=== PATIENT | female | born 1970 | race Caucasian/White ===

== ENCOUNTER 2024-11-10 02:09 | Inpatient (IN) | payer BC, SELFPAY ==
[2024-11-09 17:17] VITALS: BP 122/76
[2024-11-09 17:52] LABS: % Basophils 0.3 % (0-2); % Immature Granulocytes 0.4 % (0-0.5); % Lymphocytes 6.2 % (20.5-51.1); % Monocytes 6.1 % (1.7-9.3); Absolute Basophils 0.1 10^3/uL (0-0.2); Absolute Immature Granulocytes 0.1 10^3/uL (0-0.05); Absolute Lymphocytes 1.3 10^3/uL (1.2-3.4); Absolute Monocytes 1.2 10^3/uL (0.1-0.6); Absolute Neutrophils 17.5 10^3/uL (1.4-6.5); Hematocrit 37.4 % (37.0-47.0); Mean Corp Hgb Conc. 34.8 g/dL (33.0-37.0); Mean Corpuscular Hgb 29.9 pg (27.0-31.0); Mean Platelet Volume 11.3 fL (7.4-10.4); Nucleated Red Blood Cells % 0 %; Platelet Count 194 10^3/uL (130-400); Red Blood Cell Count 4.35 10^6/uL (4.20-5.40); Red Cell Dist. Width 12.8 % (11.5-14.5); White Blood Cell Count 20.1 10^3/uL (4.8-10.8)
[2024-11-09 18:07] LABS: ALT (SGPT) 24 U/L (0-35); AST (SGOT) 19 U/L (14-36); Albumin 4.2 g/dl (3.5-5.0); Alkaline Phosphatase 71 U/L (38-126); Blood Urea Nitrogen 10 mg/dl (7-17); Calcium 9.5 mg/dl (8.4-10.2); Carbon Dioxide 23 mmol/L (22-30); Chloride 100 mmol/L (98-107); Glucose 110 mg/dl (70-99); Lipase 51 U/L (23-300); Potassium 3.8 mmol/L (3.5-5.1); Sodium 134 mmol/L (135-145); Total Bilirubin 1.5 mg/dl (0.2-1.3); Total Protein 6.9 g/dl (6.3-8.2); eGFR > 60.00
[2024-11-09 23:11] VITALS: BMI 33.1
--- NOTE | 2024-11-09 23:16 | ED.GENMED ---
History of Present Illness
General
Chief Complaint: Abdominal Pain
Time Seen by Provider: 11/09/24 22:27
History of Present Illness
History of Present Illness:
54-year-old female with history of hyperlipidemia presenting to the emergency department with abdominal pain. Patient reports since yesterday morning she has been having left lower quadrant abdominal pain. Does note some nausea and vomiting.
Denies changes in her stool. Reports history of hysterectomy, otherwise denies abdominal surgeries. Denies chest pain or difficulty breathing. Denies any history of diverticulitis, does report diverticulosis in the past. Reports low-grade
fevers. She had a telehealth visit with her primary care doctor today, was prescribed ofloxacin and metronidazole. She denies additional acute medical complaints
Past History
Past History
ED Past Medical History: Psychiatric
Phy Exam
Physical Exam
Physical Exam:
General: Well-appearing, no clinical signs of dehydration, nontoxic and in no acute distress
HEENT: protecting airway
Neck: appears supple
CV: Normal heart rate, regular rhythm, no evidence of cyanosis
Resp: No accessory muscle use, no increased work of breathing
Abd: Soft and non-distended, focal tenderness to the left lower quadrant with voluntary guarding, no rebound
Extremities: No deformities, no swelling, no erythema
Neuro: alert, no focal neurologic deficit
: deferred
Rectal: deferred
Psych: Normal affect
Skin: Intact
Course
Orders/Labs/Results
Orders:
Orders
11/09/24 17:39
Complete Blood Count/With Diff Urgent
Comprehensive Metabolic Panel Urgent
Lipase Urgent
11/09/24 19:46
CT Abd/Pel (IV only)-DH only Urgent
Comment:
Reason For Exam: llq
11/09/24 22:27
Lactic Acid Urgent
0.9% Sodium Chloride 1000 ml [Nss] 1,000 ml IV BOLUS
11/09/24 22:55
Cefepime HCl [Maxipime] 2,000 mg IV NOW STA
Ketorolac [Toradol] 30 mg IV NOW STA
Vancomycin [Vancocin] 2,000 mg 0.9% Sodium Chloride 500 ml [Nss] 500 ml IV NOW
Abnormal Lab Results
11/09/24
17:39
WBC 20.1 H 10^3/uL
(4.8-10.8)
MPV 11.3 H fL
(7.4-10.4)
Abs Immat Gran (auto) 0.1 H 10^3/uL
(0-0.05)
Absolute Neuts (auto) 17.5 H 10^3/uL
(1.4-6.5)
Absolute Monos (auto) 1.2 H 10^3/uL
(0.1-0.6)
Neutrophils % 87.0 H %
(42.2-75.2)
Lymphocytes % 6.2 L %
(20.5-51.1)
Sodium 134 L mmol/L
(135-145)
Glucose 110 H mg/dl
(70-99)
Total Bilirubin 1.5 H mg/dl
(0.2-1.3)
11/09/24 17:39
11/09/24 17:39
Vital Signs
Initial and Last Documented VS:
Initial Vital Signs
Temp Pulse Resp BP Pulse Ox
99.2 F 87 18 122/76 97
11/09/24 17:17 11/09/24 17:17 11/09/24 17:17 11/09/24 17:17 11/09/24 17:17
Last Documented Vital Signs
Temp Pulse Resp BP Pulse Ox
99.2 F 87 18 122/76 97
11/09/24 17:17 11/09/24 17:17 11/09/24 17:17 11/09/24 17:17 11/09/24 17:17
MDM/Problems Addressed
MDM/Problems Addressed:
54-year-old female with history of hyperlipidemia presenting to the emergency department with left lower quadrant abdominal pain. Vital signs on arrival severe for low-grade temperature
On exam, patient is resting comfortably, nontoxic, however does appear uncomfortable secondary to pain. Patient with focal tenderness to the left lower quadrant. Primary suspicion for acute diverticulitis. Patient had laboratory analysis and CT
imaging obtained prior to my assessment. Patient does have leukocytosis. Blood pressure is stable, no additional SIRS criteria. Will add lactic acid. Patient did also have CT imaging, consistent with acute diverticulitis of the sigmoid colon
with contained perforation. Will start patient on IV antibiotics. Plan for admission for continued antibiotic therapy and surgical consultation. Toradol administered for pain. IV fluids administered
*Critical Care Note
Total Time (30-74mins, 75-104mins- exclusive of procedures): Not Applicable
ED Attending Note
-
Portions of this chart may have been created with voice recognition software.� Occasional wrong word or��sound alike� substitutions may have occurred due to the inherent limitations of voice recognition software.
Discharge Plan
Departure
Prescriptions:
No Action
trazodone 50 mg Tablet
50 mg PO HS
metronidazole 500 mg Tablet
500 mg PO BID
ciprofloxacin HCl [Cipro] 500 mg Tablet
500 mg PO BID
buspirone 10 mg Tablet
10 mg PO TID
ibuprofen [Advil] 200 mg Tablet
600 mg PO Q6HPRN PRN (Reason: mild pain)
escitalopram oxalate 20 mg Tablet
20 mg PO HS
rosuvastatin 10 mg Tablet
10 mg PO HS
Interventions
Interventions:
*Risk Screen - Suicide Last Done: 11/09/24 17:17
*General Assessment Last Done: 11/09/24 17:17
*Neglect/Abuse Screening Last Done: 11/09/24 17:17
ED- Fall Risk Assessment Last Done: 11/09/24 23:11
*ED COVID-19 Vaccine History Last Done: 11/09/24 23:11
GM-Hdhwki-Ftsefysfmu Assessment Last Done: 11/09/24 23:11
Discharge Date and Time
Print Language: TELUGU
[2024-11-09] MEDS: MAXIPIME 2000 MG IV (23:26)
[2024-11-09] MEDS: TORADOL 30 MG IV (23:26)
[2024-11-09] MEDS: NSS 1000 IV (23:27)
[2024-11-09 23:35] VITALS: BP 119/55
[2024-11-09 23:53] LABS: Lactic Acid 0.8 mmol/L (0.7-2.0)
[2024-11-10] VITALS (10 sets, daily range): BP systolic 109–132; BP diastolic 57–82; BMI 33.1
[2024-11-10] MEDS: VANCOCIN 540 MG IV (00:25)
--- NOTE | 2024-11-10 01:40 | HPS.HSE ---
Family Physician
-
Family Physician: Angela Morelos
Chief Complaint
-
Abdominal pain
History of Present Illness
Abdominal pain
This is a 54-year-old with past medical history significant for anxiety/depression, hyperlipidemia presenting to the emergency department with approximately 1 day history of abdominal pain.
Patient reports sudden onset of bilateral lower quadrant abdominal pain that started around 1 AM 24 hours ago. She had this pain woke her from sleep. She cannot have abdominal pain and vomiting. She did not have diarrhea. She denied fevers or
chills.
She reported symptoms slightly improved in the morning but then got worse again during the daytime. She called and received instructions on medication from her physician. She was supposed to start on Cipro and Flagyl. She did stat 1 dose of these
medications. She was placed on clear liquid diet at home. And symptoms worsened so she was referred to the emergency department.
In the emergency department she was afebrile, blood pressure was 112/60 with a pulse of 87 and satting 94% on room air. He had leukocytosis to 20, hemoglobin and platelets were normal. Electrolytes BUN/creatinine were also normal. CT of the
abdomen and pelvis showed Findings suspicious for distal sigmoid diverticulitis with possible accompanying small contained perforation but without free air. Some adjacent small volume free fluid in the dependent true pelvis
Medical History
Past Medical History
Past Medical History: Reports Hypercholesterolemia and Psychiatric
Past Surgical History: Reports Gynocological (hysterectomy)
Social History
Tobacco: Former Smoker
Alcohol: Daily (3 beers / day)
Drug: None
Personal:
Living: With Family
Employment: Employed
Family History
Family History: Not pertinent
Allergies / Home Medications
Allergies reflects when Allergies were last updated in [facility].
Home Medications with original date entered in [facility]
Allergy/Medication List:
Allergies
Allergy/AdvReac Type Severity Reaction Status Date / Time
Penicillins Allergy Rash Verified 11/09/24 17:22
venom-honey bee Allergy Anaphylaxis Verified 11/09/24 17:22
[bee venom (honey bee)]
Home Medications
buspirone 10 mg tablet 10 mg PO TID 11/09/24
ciprofloxacin HCl 500 mg tablet (Cipro) 500 mg PO BID 11/09/24
escitalopram oxalate 20 mg tablet 20 mg PO HS 11/09/24
ibuprofen 200 mg tablet (Advil) 600 mg PO Q6HPRN PRN mild pain 11/09/24
metronidazole 500 mg tablet 500 mg PO BID 11/09/24
rosuvastatin 10 mg tablet 10 mg PO HS 11/09/24
trazodone 50 mg tablet 50 mg PO HS 11/09/24
Review of Systems
-
History Source: Patient
Constitutional: Reports No Symptoms
EENT: Reports No Symptoms
Respiratory: Reports No Symptoms
Cardiac: Reports No Symptoms
Abdomen/GI: Reports Abdominal Pain
: Reports No Symptoms
Musculoskeletal: Reports No Symptoms
Skin: Reports No Symptoms
Neurological: Reports No Symptoms
Endocrine: Reports No Symptoms
Hematologic/Lymphatic: Reports No Symptoms
Psych: Reports No Symptoms
Physical Exam
Vital Signs
Vital Signs
Temp Pulse Resp BP Pulse Ox
98.9 F 87 18 112/60 94
11/09/24 23:11 11/09/24 17:17 11/09/24 17:17 11/10/24 01:00 11/10/24 01:00
Physical Exam
General: Well Developed and Well Nourished; No Fever or Chills
HEENT: NormoCephalic, Anicteric, Moist mucous membranes and Atraumatic
Respiratory: Clear; No Wheezes, Rales or Rhonchi
Cardiac: S1/S2 and Regular Rhythm
Breast: Deferred by me
GI: Soft, Non Distended, Normal Bowel Sounds and Tender
Rectal: Deferred by Provider
Genito-urinary: Deferred by me
Musculoskeletal: No Clubbing, No Cyanosis and No Edema
Skin: Warm and Dry
Neuro: AO x 3 and Nonfocal/grossly intact
Hematologic/Lymphatic: No Lymphadenopathy
Psych: Calm
Laboratory Results
-
11/09/24 17:39
11/09/24 17:39
Laboratory Results
Lactic Acid 0.8 mmol/L (0.7-2.0) 11/09/24 23:25
Total Bilirubin 1.5 mg/dl (0.2-1.3) H 11/09/24 17:39
AST 19 U/L (14-36) 11/09/24 17:39
ALT 24 U/L (0-35) 11/09/24 17:39
Alkaline Phosphatase 71 U/L (38-126) 11/09/24 17:39
Lipase 51 U/L (23-300) 11/09/24 17:39
Data Reviewed
-
CT Scan: Report Reviewed by me
Lab Data: Labs Reviewed by me
Old Records: Reviewed
Impression/Plan
-
IMPRESSION:
54 y.o female coming in with abdominal pain nausea and vomiting. Initated on abx for diverticulitis by PMD prior to ED arrival today. Found to have distal sigmoid diveriticulitis with possible accompanying small contained perforation but without
free air, small amount of free pelvic fluid.
PLAN:
Diverticulitis - She is currently HD stable, afebrile and well appearing. Abdominal exam is relatively benign without rebound or guarding. CT with diverticulitis and possible contained perforation. NO recent hospitalizations or abx use.
- admit to med/surg
- npo for now
- IV cefepime continued, IV flagyl. No indication for vanc
- serial examinations
- surgery consultation s
- blood cultures if febrile.
- continue oral statin, lexapro and buspirone
DVT PPPX - lovenox sq
Code status - Full Code
[2024-11-10] MEDS: FLAGYL 500 MG 100 IV ×3 (02:37→23:19)
[2024-11-10] MEDS: BENADRYL 25 MG IV (02:51)
[2024-11-10] MEDS: DECADRON 6 MG IV (02:52)
[2024-11-10] MEDS: LR 1000 IV ×2 (04:30→11:37)
[2024-11-10] MEDS: TORADOL 10 MG IV (04:47)
[2024-11-10] MEDS: PEPCID 40 MG PO (05:15)
[2024-11-10] MEDS: STERILE WATER FOR INJECTION 10 ML IV ×3 (05:15→20:11)
[2024-11-10] MEDS: MAXIPIME 1000 MG IV ×3 (05:15→20:12)
--- NOTE | 2024-11-10 06:11 | PTCARENOTE ---
Pt arrived to floor from ED and walked to bed from stretcher with a standby assist. Pt c/o left knee pain from a fall a week ago. PT With some Mild LLQ distention and tender to touch. VSS, call patterson within reach. Will review chart and follow plan of
care.
--- NOTE | 2024-11-10 07:05 | W.PN.HOSP.TC ---
Today's Communication/Plan
-
Continue antibiotics
Clear liquids diet -- advance as tolerated
AVOID ANY VANCOMYCIN OR PENICILLIN (SEE BELOW)
Assessment / Plan
Assessment / Plan
Physical Exam
General: Well Developed and Well Nourished; Not in acute distress
HEENT: Normocephalic
Respiratory: Clear to Auscultation Bilaterally
Cardiac: S1/S2 and Regular Rhythm
GI: Soft, Non Distended, Normal Bowel Sounds and Mild LLQ tenderness
Musculoskeletal: No Cyanosis and No Edema
Skin: Warm and Dry
Neuro: AAO x 3 and Nonfocal/grossly intact
Psych: Calm
Assessment/Plan
54 y/o female presented with abdominal pain nausea and vomiting. She was started on antibiotics for diverticulitis by primary care physician prior to arrival to the ER this admission. She was found to have distal sigmoid diveriticulitis with
possible accompanying small contained perforation but without free air, small amount of free pelvic fluid.
Diverticulitis
- CT with inflammatory changes of the distal sigmoid colon consistent with diverticulitis; there is a small amount of pericolonic air but no free air, obstruction or abscess.
- Clear Liquids Diet -- advance as tolerated
- IV cefepime continued, IV flagyl. No indication for vanc
- Colorectal surgery consultation s
Allergies to Vancomycin and Penicillins
Vancomycin Rachell Syndrome Reaction
- Got rash around the time of admission, was determined to be likely from Vancomycin
- Appears to be tolerating cephalosporin fine
Alcohol Use -- has 4 drinks daily
-Continue MSAS protocol
Indigestion Symptoms
-Pepcid added overnight
DVT Prophylaxis - Lovenox sq
Code status - Full Code
Anticipated Discharge: Within 24 hours
Subjective/Interval History
-
Date of Service: November 10, 2024
Patient was seen and examined. She reported that her abdominal pain has improved.
Objective Data
-
Labs:
Laboratory Results
11/10/24
06:00
WBC Pending
Hgb Pending
Hct Pending
Plt Count Pending
Sodium Pending
Potassium Pending
Chloride Pending
Carbon Dioxide Pending
BUN Pending
Creatinine Pending
Glucose Pending
Calcium Pending
Vital Signs:
Vital Signs
Temp Pulse Resp BP Pulse Ox
97.4 F 88 17 130/72 97
11/10/24 03:44 11/10/24 03:44 11/10/24 03:44 11/10/24 03:44 11/10/24 03:44
I&O
11/09/24 11/10/24 11/11/24
06:59 06:59 06:59
Intake Total 495 / 495
Balance 495 / 495
[2024-11-10] MEDS: TYLENOL 650 MG PO ×3 (08:01→20:08)
[2024-11-10] MEDS: BUSPAR 10 MG PO ×3 (08:01→20:10)
[2024-11-10 09:03] LABS: Hematocrit 34.9 % (37.0-47.0); Hemoglobin 11.9 g/dL (12.0-16.0); Mean Corp Hgb Conc. 34.1 g/dL (33.0-37.0); Mean Corpuscular Hgb 29.8 pg (27.0-31.0); Mean Corpuscular Volume 87.5 fL (81.0-99.0); Mean Platelet Volume 11.9 fL (7.4-10.4); Platelet Count 173 10^3/uL (130-400); Red Blood Cell Count 3.99 10^6/uL (4.20-5.40); Red Cell Dist. Width 12.8 % (11.5-14.5); White Blood Cell Count 17.3 10^3/uL (4.8-10.8)
[2024-11-10 09:33] LABS: Blood Urea Nitrogen 10 mg/dl (7-17); Calcium 9.2 mg/dl (8.4-10.2); Carbon Dioxide 20 mmol/L (22-30); Chloride 105 mmol/L (98-107); Estimated Creatinine Clearance 122 ml/min; Glucose 144 mg/dl (70-99); Magnesium 2.1 mg/dl (1.6-2.3); Potassium 3.8 mmol/L (3.5-5.1); Sodium 136 mmol/L (135-145); eGFR > 60.00
[2024-11-10] MEDS: MAXIPIME IV (11:38)
--- NOTE | 2024-11-10 13:04 | CON.CRS ---
Medical History
-
Chief Complaint: abdominal pain
History of Present Illness:
This is a 54 yo female with a prior history of ASHWIN, HLD and colonoscopy in 2022 with removal of small polyps and diverticular disease noted who presents with lower abdominal pain for approximately 24 hours which is currently nearly resolved. She
denies accompanied nausea, vomiting or diarrhea. She denies fevers and chills. On exam, minimal to no tenderness present to the lower abdomen without distention present.
Past Medical History
Past Medical History: Hypercholesterolemia
Past Surgical History: Gynecological (ASHWIN)
Social History
Tobacco: Former Smoker
Alcohol: Daily
Drug: None
Personal:
Living: With Family
Employment: Employed
Family History
Family History: Reviewed & Not Pertinent
Allergies / Home Medications
Allergy/AdvReac Type Severity Reaction Status Date / Time
Penicillins Allergy Rash Verified 11/09/24 17:22
venom-honey bee Allergy Anaphylaxis Verified 11/09/24 17:22
[bee venom (honey bee)]
�Medication �Instructions �Recorded �Confirmed �Type
buspirone 10 mg tablet 10 mg PO TID 11/09/24 11/09/24 History
ciprofloxacin HCl 500 mg tablet 500 mg PO BID 11/09/24 11/09/24 History
(Cipro)
escitalopram oxalate 20 mg tablet 20 mg PO HS 11/09/24 11/09/24 History
ibuprofen 200 mg tablet (Advil) 600 mg PO Q6HPRN PRN mild pain 11/09/24 11/09/24 History
metronidazole 500 mg tablet 500 mg PO BID 11/09/24 11/09/24 History
rosuvastatin 10 mg tablet 10 mg PO HS 11/09/24 11/09/24 History
trazodone 50 mg tablet 50 mg PO HS 11/09/24 11/09/24 History
ranitidine HCl 150 mg tablet 150 mg PRN heartburn 11/10/24 History
Review of Systems
-
History Source: Patient and Family
All other systems: Negative unless noted
A 10 point review of systems was completed, and was negative except as per HPI.
Physical Exam
Vital Signs
Temp 99.2 F 11/10/24 07:49
Pulse 84 11/10/24 07:49
Resp Rate 16 11/10/24 07:49
Blood pressure 111/66 11/10/24 07:49
SaO2 98 11/10/24 07:49
11/09/24 11/10/24 11/11/24
06:59 06:59 06:59
Actual Weight 90.322 kg
Body Mass Index (BMI) 33.1
Lab Results / Allergies
11/10/24 08:25
11/10/24 08:25
WBC 17.3 10^3/uL (4.8-10.8) H 11/10/24 08:25
Hgb 11.9 g/dL (12.0-16.0) L 11/10/24 08:25
Hct 34.9 % (37.0-47.0) L 11/10/24 08:25
Plt Count 173 10^3/uL (130-400) 11/10/24 08:25
Abs Immat Gran (auto) 0.1 10^3/uL (0-0.05) H 11/09/24 17:39
Neutrophils % 87.0 % (42.2-75.2) H 11/09/24 17:39
Allergy/AdvReac Type Severity Reaction Status Date / Time
Penicillins Allergy Rash Verified 11/09/24 17:22
venom-honey bee Allergy Anaphylaxis Verified 11/09/24 17:22
[bee venom (honey bee)]
Physical Exam
General: Well Developed and Well Nourished
HEENT: Moist Mucous Membranes
Respiratory: Non Labored Respirations
GI: Soft, Non Tender and Non Distended
Skin: Warm and Dry
Neuro: Awake and AO x 3
Psych: Calm
Data Reviewed
-
CT Scan: Image Personally Visualized and interpreted, Report Reviewed by me, Discussed with Physician and Discussed with Patient
Labs: Labs Reviewed by me, Discussed with Physician and Discussed with Patient
Old Records: Reviewed
Assessment / Plan
-
54 yo female with a prior history of ASHWIN, HLD and colonoscopy in 2022 with removal of small polyps and diverticular disease noted who presents with lower abdominal pain for approximately 24 hours which is currently nearly resolved. Significant
leukocytosis was present on arrival but now trending down with CT imaging demonstrating findings of sigmoid diverticulitis with possible contained microperforation although no abscess or free air is present. She has responded well to IV abx with
significant improvement in symptoms. AFVSS.
--Ok for clear liquids and advance to FLD later today if tolerating without increase in pain
--Trend CBC
--Continue IV ABX
--Medical management as per primary team
No plans for emergent surgery at this time, will follow for continued improvement medical measures
[2024-11-10] MEDS: MYLICON 80 MG PO (20:07)
[2024-11-10] MEDS: DESYREL 50 MG PO (20:09)
[2024-11-10] MEDS: LEXAPRO 20 MG PO (20:10)
[2024-11-10] MEDS: CRESTOR 10 MG PO (20:10)
[2024-11-10] MEDS: PEPCID 20 MG PO (20:10)
[2024-11-11] MEDS: MAXIPIME 1000 MG IV ×2 (01:07→08:14)
[2024-11-11] MEDS: LR 1000 IV ×2 (01:07→08:13)
[2024-11-11] MEDS: STERILE WATER FOR INJECTION 10 ML IV ×2 (01:08→08:14)
--- NOTE | 2024-11-11 07:14 | W.PN.HOSP.TC ---
Addendum entered and electronically signed by Souleymane Braun MD 11/11/24 14:40:
Per my [place] [facility] communication today with colorectal surgery team, they prefer cephalosporin and metronidazole (not Bactrim or Fluoroquinolone) on discharge, and patient is allergic to penicillins so cannot do Augmentin.
Original Note:
Today's Communication/Plan
-
Discharge today
Assessment / Plan
Assessment / Plan
Physical Exam
General: Well Developed and Well Nourished; Not in acute distress
HEENT: Normocephalic
Respiratory: Clear to Auscultation Bilaterally
Cardiac: S1/S2 and Regular Rhythm
GI: Soft, Non Distended, Normal Bowel Sounds and Mild LLQ tenderness
Musculoskeletal: No Cyanosis and No Edema
Skin: Warm and Dry
Neuro: AAO x 3 and Nonfocal/grossly intact
Psych: Calm
Assessment/Plan
54 y/o female presented with abdominal pain nausea and vomiting. She was started on antibiotics for diverticulitis by primary care physician prior to arrival to the ER this admission. She was found to have distal sigmoid diveriticulitis with
possible accompanying small contained perforation but without free air, small amount of free pelvic fluid.
Diverticulitis
- CT with inflammatory changes of the distal sigmoid colon consistent with diverticulitis; there is a small amount of pericolonic air but no free air, obstruction or abscess.
- Low Residue Diet
- Cefdinir and Flagyl on discharge for 10 more days
- Colorectal surgery consulted
Allergies to Vancomycin and Penicillins
Vancomycin Rachell Syndrome Reaction
- Got rash around the time of admission, was determined to be likely from Vancomycin
- Appears to be tolerating cephalosporin fine
Alcohol Use -- has 4 drinks daily
-Continue MSAS protocol
-MSAS scores have been zero to 1 over the past >24 hours
Indigestion Symptoms
-Pepcid added this hospitalization, can do as needed outpatient
DVT Prophylaxis - Lovenox sq
Code status - Full Code
More than 30 minutes spent in discharge including
Final examination of the patient
Summarizing hospital stay
Instructions for continuing care to all relevant caregivers
Preparation of discharge records, prescriptions, and referral forms
Total time spent (in minutes): 39
Anticipated Discharge: Today
Subjective/Interval History
-
Date of Service: November 11, 2024
Patient was seen and examined. She denied any complaints or issues at the time she was seen, she had a bowel movement, and is also tolerating her diet.
Objective Data
-
Labs:
Laboratory Results
11/11/24
07:01
WBC Pending
Hgb Pending
Hct Pending
Plt Count Pending
Sodium Pending
Potassium Pending
Chloride Pending
Carbon Dioxide Pending
BUN Pending
Creatinine Pending
Glucose Pending
Calcium Pending
Vital Signs:
Vital Signs
Temp Pulse Resp BP Pulse Ox
97.9 F 76 17 109/66 100
11/10/24 23:37 11/10/24 23:37 11/10/24 23:37 11/10/24 23:37 11/10/24 23:37
I&O
11/10/24 11/11/24 11/12/24
06:59 06:59 06:59
Intake Total 495 / 495 2675 / 2675
Balance 495 / 495 2675 / 2675
[2024-11-11 07:25] VITALS: BP 121/72
[2024-11-11 08:06] LABS: Hematocrit 33.1 % (37.0-47.0); Hemoglobin 11.5 g/dL (12.0-16.0); Mean Corp Hgb Conc. 34.7 g/dL (33.0-37.0); Mean Corpuscular Hgb 30.2 pg (27.0-31.0); Mean Corpuscular Volume 86.9 fL (81.0-99.0); Mean Platelet Volume 11.8 fL (7.4-10.4); Platelet Count 170 10^3/uL (130-400); Red Blood Cell Count 3.81 10^6/uL (4.20-5.40); White Blood Cell Count 14.3 10^3/uL (4.8-10.8)
[2024-11-11] MEDS: PEPCID 20 MG PO (08:13)
[2024-11-11] MEDS: BUSPAR 10 MG PO ×2 (08:13→15:52)
[2024-11-11] MEDS: TORADOL 10 MG IV (08:14)
[2024-11-11 08:38] LABS: Blood Urea Nitrogen 6 mg/dl (7-17); Calcium 9.3 mg/dl (8.4-10.2); Carbon Dioxide 24 mmol/L (22-30); Chloride 107 mmol/L (98-107); Estimated Creatinine Clearance 122 ml/min; Glucose 131 mg/dl (70-99); Potassium 3.9 mmol/L (3.5-5.1); Sodium 140 mmol/L (135-145); eGFR > 60.00
--- NOTE | 2024-11-11 09:57 | W.PN.GS2 ---
Today's Communication / Plan
-
advance diet
Assessment / Plan
-
54 yo female presenting with first episode of diverticulitis, up to date on colonoscopy. CT reveals inflammatory changes of the distal sigmoid colon c/w diverticulitis. There is a small amount of pericolonic air but no free air, obstruction or
abscess
AFVSS
WBC trending down
--Advance to LRD
--C/W antibiotics
--May be ready for discharge later today on oral agents if tolerating diet, patient eager to go home. Will plan OP follow up
Subjective Data
-
Date of Service: November 11, 2024
Patient seen and examined at bedside with Dr. Quintero. She has some mild cramping discomfort to the left lower abd with some diarrhea today. Tolerating diet.
Objective Data
-
Intake and Output
11/10/24 11/11/24 11/12/24
06:59 06:59 06:59
Intake Total 495 / 495 2675 / 2675
Balance 495 / 495 2675 / 2675
Intake:
Oral fluids 120 / 120 1200 / 1200
IV fluids (Total) 375 / 375 1375 / 1375
IV piggybacks 100 / 100
Other:
Number of approximated MODERATE 4
amounts of urine
How many times incontinent 1
MODERATE amount urine
Vital Signs
Temp Pulse Resp BP Pulse Ox
98.5 F 82 18 121/72 99
11/11/24 07:25 11/11/24 07:25 11/11/24 07:25 11/11/24 07:25 11/11/24 07:25
Lab Results
11/11/24 07:01
11/11/24 07:01
Calcium 9.3 mg/dl (8.4-10.2) 11/11/24 07:01
Magnesium 2.1 mg/dl (1.6-2.3) 11/10/24 08:25
Total Bilirubin 1.5 mg/dl (0.2-1.3) H 11/09/24 17:39
AST 19 U/L (14-36) 11/09/24 17:39
ALT 24 U/L (0-35) 11/09/24 17:39
Alkaline Phosphatase 71 U/L (38-126) 11/09/24 17:39
Total Protein 6.9 g/dl (6.3-8.2) 11/09/24 17:39
Albumin 4.2 g/dl (3.5-5.0) 11/09/24 17:39
Physical Exam
-
NAD
ABD soft, minimal tenderness to LLQ, nd
[2024-11-11 11:11] VITALS: BP 130/84
[2024-11-11] MEDS: FLAGYL 500 MG IV ×2 (11:31→11:49)
[2024-11-11] MEDS: MAXIPIME IV (12:51)
[2024-11-11] MEDS: STERILE WATER FOR INJECTION IV (12:51)
--- NOTE | 2024-11-11 14:36 | W.DCSUMMARY ---
Discharge Summary
Discharge Data
Date of Admission: 11/10/24
Date of Discharge: 11/11/24
Total time spent discharging patient (in min): 39
-
Pending Results: No
Hospital Course
54-year-old female with past medical history significant for anxiety/depression, hyperlipidemia presenting to the emergency department with approximately 1 day history of abdominal pain. CT of the abdomen pelvis suggested distal sigmoid
diverticulitis with possible accompanying small contained perforation but without free air (but please see full CT imaging report for all of the details). 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
have a Rachell Syndrome with Vancomycin (which was given in the ER) -- rash resolved with discontinuation and supportive (e.g. Benadryl) medications. Patient tolerated Cefepime and Flagyl well. Colorectal surgery was consulted at the time of
admission and they mentioned that there is a small amount of pericolonic air but no free air, obstruction or abscess, and they mentioned no surgery was required. Patient's symptoms improved and she was stable for discharge on oral antibiotics.
Surgery team recommended oral cephalosporin and flagyl on discharge (given patient tolerated Cephalosporin inpatient), so patient was discharged on Cefdinir and Flagyl.
Discharge Plan
-
Patient Disposition: Home (Routine Discharge)
Discharge Diagnosis/Procedures: Diverticulitis
Allergies to Vancomycin and Penicillins
Vancomycin Rachell Syndrome Reaction
Alcohol Use -- has 4 drinks daily
Indigestion Symptoms
CT Abdomen/Pelvis (as per radiologist's report):
'Findings suspicious for distal sigmoid diverticulitis with possible accompanying small contained perforation but without free air. Some adjacent small volume free fluid in the dependent true pelvis.'
Condition: Good
Diet: Low Fiber and Low Residue
Additional Diets: low fiber for about 2-3 weeks
Activity: As tolerated
Blood Work: Check CBC (with differential) and CMP (due to slightly elevated bilirubin) with your outpatient physician within 1 week
Instructions: Low-fiber diet
Referrals:
Wes Quintero MD [Active] - in two to four weeks
Angela Morelos DO [Family Provider] - in less than 1 week (CBC with differential, CMP labwork)
Additional Discharge Medication Instructions: Cefdinir and new Metronidazole are new medications.
Ciprofloxacin and your previous Metronidazole have been stopped.
Prescriptions:
New
cefdinir 300 mg capsule
300 mg PO Q12H 10 Days Qty: 20 0RF
metronidazole 500 mg tablet
500 mg PO Q8H 10 Days Qty: 30 0RF
Continued
trazodone 50 mg Tablet
50 mg PO HS
buspirone 10 mg Tablet
10 mg PO TID
ibuprofen [Advil] 200 mg Tablet
600 mg PO Q6HPRN PRN (Reason: mild pain)
escitalopram oxalate 20 mg Tablet
20 mg PO HS
rosuvastatin 10 mg Tablet
10 mg PO HS
ranitidine HCl 150 mg Tablet
150 mg PRN (Reason: heartburn)
Discontinued
metronidazole 500 mg Tablet
500 mg PO BID
ciprofloxacin HCl [Cipro] 500 mg Tablet
500 mg PO BID
Discharge Orders:
Discharge Patient (As Directed); Ordered 11/11/24
Ordered By: Souleymane Braun
Discharge Date and Time
Discharge Date/Time: 11/11/24 16:25
Print Language: MALDIVIAN
[2024-11-11 15:00] VITALS: BP 109/71
[2024-11-11] MEDS: OMNICEF 300 MG PO (15:02)
--- NOTE | 2024-11-11 15:36 | CM ---
Addendum entered by Judi Manley RN 11/11/24 15:41:
The patient says she feels ready for d/c today. Her will provide transport home today.
Original Note:
Patient with Dx Diverticulitis.
Met with patient who resides with her and mother in law in a split level house with chair lift.
The patient was independent in ADLs and ambulation.
DME - [employer], [employer], home O2 (not using any DME)
No prior VN
PCP - Angela Duarte
Pharmacy - [facility]
No CM d/c needs identified.
Plan home.
[2024-11-11] MEDS: FLAGYL 500 MG PO (15:52)
== END 2024-11-11 16:25 | disposition home or self-care (01) | DRG 392 ==
LOC: 3 WEST ACU 02:09
PROVIDERS: Emergency Medicine; Registered Nurse; ADMITTING PHYSICIAN Internal Medicine; ATTENDING PHYSICIAN Hospitalist; CONSULT PHYSICIAN Surgery; EMERGENCY PHYSICIAN Student in an Organized Health Care Education/Training Program; FAMILY PHYSICIAN Family Medicine
DX: K57.32 Diverticulitis of large intestine without perforation or abscess without bleeding (principal); Z87.891 Personal history of nicotine dependence; Z88.1 Allergy status to other antibiotic agents; F10.90 Alcohol use, unspecified, uncomplicated; K30 Functional dyspepsia; Z88.0 Allergy status to penicillin; L27.0 Generalized skin eruption due to drugs and medicaments taken internally; T36.8X5A Adverse effect of other systemic antibiotics, initial encounter
CPT/HCPCS: 74177; 80048; 80053; 83605; 83690; 83735; 85025; 85027; 93005; 96361; 96365; 96366; 96367; 96375; 99284; Q9967

== ENCOUNTER 2025-02-08 10:04 | Inpatient (IN) | payer BC, SELFPAY ==
[2025-02-01 06:58] VITALS: BMI 33.8
[2025-02-01 09:02] LABS: Hematocrit 41.1 % (37.0-47.0); Hemoglobin 13.9 g/dL (12.0-16.0); Mean Corp Hgb Conc. 33.8 g/dL (33.0-37.0); Mean Corpuscular Hgb 29.7 pg (27.0-31.0); Mean Corpuscular Volume 87.8 fL (81.0-99.0); Mean Platelet Volume 12.6 fL (7.4-10.4); Platelet Count 190 10^3/uL (130-400); Red Blood Cell Count 4.68 10^6/uL (4.20-5.40); Red Cell Dist. Width 13.2 % (11.5-14.5); White Blood Cell Count 7.5 10^3/uL (4.8-10.8)
[2025-02-01 09:22] LABS: INR 0.88; PT 12.2 Sec (11.4-14.6)
[2025-02-01 09:23] LABS: APTT 32.1 Sec (23.4-35.0)
[2025-02-01 09:43] LABS: ALT (SGPT) 25 U/L (0-35); AST (SGOT) 22 U/L (14-36); Albumin 4.8 g/dl (3.5-5.0); Alkaline Phosphatase 53 U/L (38-126); Blood Urea Nitrogen 16 mg/dl (7-17); Calcium 9.7 mg/dl (8.4-10.2); Carbon Dioxide 28 mmol/L (22-30); Chloride 109 mmol/L (98-107); Estimated Creatinine Clearance 89 ml/min; Glucose 95 mg/dl (70-99); Potassium 4.7 mmol/L (3.5-5.1); Sodium 143 mmol/L (135-145); Total Bilirubin 0.5 mg/dl (0.2-1.3); Total Protein 7.6 g/dl (6.3-8.2); eGFR > 60.00
[2025-02-01 10:06] LABS: Glycohemoglobin (HgbA1c) 5.6 % (4.0-5.6)
[2025-02-08] VITALS (9 sets, daily range): BP systolic 117–129; BP diastolic 63–79; BMI 33.8
[2025-02-08] MEDS: ENTEREG 12 MG PO (10:38)
[2025-02-08] MEDS: NORMOSOL-R/PLASMALYTE-A 1000 IV ×2 (10:39→16:19)
[2025-02-08] MEDS: TYLENOL 1000 MG PO (10:39)
[2025-02-08] MEDS: HEPARIN 5000 UNITS SC (10:39)
--- NOTE | 2025-02-08 14:52 | W.IMMPOSTOP ---
Surgical Immed Post Op Note
-
Primary Surgeon: James Quintero MD
Parachute Repairer: DENISE Sky
Pre-op Diagnosis: Recurrent sigmoid diverticulitis
Post-op Diagnosis: Same
Procedure Performed: Robotic sigmoid resection with intracorporeal anastomosis
Anesthesia Type: GET
Specimen / Cultures: Sigmoid colon (suture is proximal)
Estimated Blood Loss: 20c
Complications: None
Operative Findings: Acute distal sigmoid diverticulitis
28mm EEA
Normal leak test
Patient's spouse updated.
[2025-02-08] MEDS: TORADOL 15 MG IV ×2 (15:40→20:53)
[2025-02-08] MEDS: TYLENOL 650 MG PO ×2 (16:20→20:51)
[2025-02-08] MEDS: BUSPAR 10 MG PO ×2 (16:21→20:51)
[2025-02-08] MEDS: FLAGYL 500 MG 100 IV (17:12)
[2025-02-08] MEDS: DESYREL 50 MG PO (20:53)
[2025-02-08] MEDS: CRESTOR 10 MG PO (20:53)
[2025-02-08] MEDS: LEXAPRO 20 MG PO (20:53)
--- NOTE | 2025-02-08 23:43 | PTCARENOTE ---
Pt AAOx4, able to make all needs known. Pt stated pain was not a problem, just felt a little bloated. Catheter w clear, yellow urine. Assessment ongoing.
[2025-02-09] MEDS: TYLENOL PO (01:00)
[2025-02-09 03:00] VITALS: BP 100/61
[2025-02-09] MEDS: FLAGYL 500 MG 100 IV (03:00)
[2025-02-09] MEDS: TYLENOL 650 MG PO ×4 (03:03→15:01)
[2025-02-09] MEDS: TORADOL 15 MG IV ×3 (03:04→15:02)
[2025-02-09 06:00] VITALS: BMI 33.3
[2025-02-09] MEDS: NORMOSOL-R/PLASMALYTE-A 1000 IV (06:12)
[2025-02-09 07:00] VITALS: BP 97/67
[2025-02-09 07:18] LABS: % Basophils 0.1 % (0-2); % Immature Granulocytes 0.4 % (0-0.5); % Lymphocytes 6.8 % (20.5-51.1); % Monocytes 5.8 % (1.7-9.3); % Neutrophils 86.9 % (42.2-75.2); Absolute Immature Granulocytes 0.1 10^3/uL (0-0.05); Absolute Monocytes 0.9 10^3/uL (0.1-0.6); Absolute Neutrophils 13.2 10^3/uL (1.4-6.5); Hematocrit 37.2 % (37.0-47.0); Hemoglobin 12.6 g/dL (12.0-16.0); Mean Corp Hgb Conc. 33.9 g/dL (33.0-37.0); Mean Corpuscular Hgb 29.4 pg (27.0-31.0); Mean Corpuscular Volume 86.7 fL (81.0-99.0); Mean Platelet Volume 12.4 fL (7.4-10.4); Nucleated Red Blood Cells % 0 %; Platelet Count 203 10^3/uL (130-400); Red Blood Cell Count 4.29 10^6/uL (4.20-5.40); Red Cell Dist. Width 13.2 % (11.5-14.5); White Blood Cell Count 15.1 10^3/uL (4.8-10.8)
[2025-02-09 07:41] LABS: Blood Urea Nitrogen 7 mg/dl (7-17); Carbon Dioxide 22 mmol/L (22-30); Chloride 110 mmol/L (98-107); Estimated Creatinine Clearance 118 ml/min; Glucose 122 mg/dl (70-99); Potassium 4.2 mmol/L (3.5-5.1); Sodium 139 mmol/L (135-145); eGFR > 60.00
[2025-02-09] MEDS: ENTEREG 12 MG PO (07:58)
[2025-02-09] MEDS: BUSPAR 10 MG PO ×2 (07:59→15:01)
--- NOTE | 2025-02-09 08:53 | W.PN.CRS1 ---
Today's Communication / Plan
-
DC Carlos
Low residue diet
Dispo planning
Assessment/Plan
-
This is a 54-year-old female with a history of recurrent diverticulitis now POD #1 robotic sigmoidectomy. Doing well, expected postoperative course.
DC Carlos
Low residue diet for lunch
Dispo planning
Subjective Data
Procedure
Robotic sigmoidectomy (Dr. Quintero 02/08/2025)
Subjective Data
Date of Service: February 09, 2025
Interval Events:
No acute events overnight. Slept well. Pain Controlled. Denies Nausea/Vomiting, +bowel function. Tolerating diet.
Objective Data
-
Vital Signs
Temp Pulse Resp BP Pulse Ox
98.5 F 77 14 97/67 95
02/09/25 07:00 02/09/25 07:00 02/09/25 07:00 02/09/25 07:00 02/09/25 07:00
Intake & Output
02/08/25 02/09/25 02/10/25
06:59 06:59 06:59
Intake Total 1560 / 1560
Output Total 800 / 800
Balance 760 / 760
Intake:
Oral fluids 480 / 480
IV fluids (Total) 980 / 980
Normosol 100 / 100
IV piggybacks 100 / 100
Output:
Urine, Carlos 800 / 800
Lab Results
02/09/25 05:46
02/09/25 05:46
Physical Exam
-
General: No Acute Distress
HEENT: Grossly Normal
Abdomen: Soft, Non Distended and Non Tender
Incision: Clear, Dry, Intact
[2025-02-09 11:00] VITALS: BP 150/88
[2025-02-09 15:00] VITALS: BP 127/67
--- NOTE | 2025-02-09 15:48 | CM ---
Met with patient who resides with her and mother in law in a split level house with chair lift.
The patient reports independece in ADLs and ambulation.
DME - [employer], home O2 (not using any DME)
PCP - Angela Duarte
Pharmacy - [facility]
Plan: Discharge to home with no identified discharge planning needs.
--- NOTE | 2025-02-09 15:59 | W.DS.TRANS ---
Addendum entered and electronically signed by ZEUS Del Castillo 02/09/25 16:32:
dictated #[id number]
Original Note:
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
-
Discharge Instructions:
Sleep Apnea Risk Low
Discharge Diagnosis/Procedures Recurrent diverticulitis. Robotic
sigmoidectomy
Diet Low Residue
Activity No strenuous activity
Additional Activity No lifting over 10lbs (gallon of milk)
Driving Restrictions No driving for 1 week
Bathing Restrictions OK to Shower
Wound Care Allow glue to naturally fall off. Do not pick at
incisions. Do not soak or swim for 2 weeks.
Instructions: Low-fiber diet
Stand-Alone Forms:
Changes to Home Medications: No
Discharge Medications:
DC Medications w/original date entered in [employer]
buspirone 10 mg tablet 10 mg PO TID 11/09/24
escitalopram oxalate 20 mg tablet 20 mg PO HS 11/09/24
rosuvastatin 10 mg tablet 10 mg PO HS 11/09/24
trazodone 50 mg tablet 50 mg PO HS 11/09/24
Medical Cannibus 1 dose inhalation PRN PRN pain, sleep 02/01/25
oxycodone 5 mg tablet 5 mg PO Q4HPRN PRN breakthrough/severe pain #15 tabs 02/09/25
Home Medication Changes
Pending Results: No
== END 2025-02-09 16:40 | disposition home or self-care (01) | DRG 331 ==
LOC: 2 SOUTH 10:04
PROVIDERS: ADMITTING PHYSICIAN Surgery; FAMILY PHYSICIAN Family Medicine
PROC: 0DTN4ZZ Resection of Sigmoid Colon, Percutaneous Endoscopic Approach (ICD-10-PCS; 2025-02-08)
PROC: 8E0W4CZ Robotic Assisted Procedure of Trunk Region, Percutaneous Endoscopic Approach (ICD-10-PCS; 2025-02-08)
DX: K57.32 Diverticulitis of large intestine without perforation or abscess without bleeding (principal)
CPT/HCPCS: 88307; 36415; 80048; 80053; 83036; 85025; 85027; 85610; 85730; 86850; 86900; 86901; 93005